=== PATIENT | female | born 1975 | race Asian ===

== ENCOUNTER 2016-06-30 14:55 | Emergency (ER) | payer OTHER ==
[~2016-06-30] VITALS: Ht 154.9 cm; Wt 52.2 kg
[~2016-06-30 14:55] MED LIST: LEVOTAB; MOXI400T
[2016-06-30 16:30] VITALS: BP 131/91
[2016-06-30] MEDS ORDERED: HYDROmorphone HCL 2 MG/ML VL IM ONE (17:15)
[2016-06-30] MEDS ORDERED: ONDANSETRON HCL 4 MG/2 ML VIAL IM ONE (17:15)
== END 2016-06-30 18:37 | disposition home or self-care (01) ==
LOC: ER 15:00
DX: G89.29 Other chronic pain (principal); M54.2 Cervicalgia; M54.12 Radiculopathy, cervical region; Z88.0 Allergy status to penicillin; Z88.6 Allergy status to analgesic agent
CPT/HCPCS: 72125; 96372; 99284; J1170; J2405

== ENCOUNTER 2016-08-06 11:56 | Emergency (ER) | payer OTHER ==
[~2016-08-06] VITALS: Ht 154.9 cm; Wt 52.2 kg
[2016-08-06 12:06] VITALS: BP 130/92
== END 2016-08-06 13:19 | disposition home or self-care (01) ==
LOC: ER 11:56
DX: G89.29 Other chronic pain (principal); M54.2 Cervicalgia; F41.9 Anxiety disorder, unspecified; Z76.0 Encounter for issue of repeat prescription; Z88.0 Allergy status to penicillin; Z88.6 Allergy status to analgesic agent

== ENCOUNTER 2019-09-07 16:35 | Emergency (ER) | payer OTHER ==
[~2019-09-07] VITALS: Ht 154.9 cm; Wt 54.4 kg
[~2019-09-07 16:35] MED LIST changes: -MOXI400T; +MOXI400T2
[2019-09-07 16:47] VITALS: BP 149/93
[2019-09-07] MEDS ORDERED: cefTRIAXone SOD 1,000 MG VL IM ONE (17:00)
[2019-09-07] MEDS ORDERED: CLINDAMYCIN 600MG IV 50 ML IV ONE (17:15)
[2019-09-07] MEDS ORDERED: cefTRIAXone 1GM/50ML D5W 50 ML IV ONE (17:15)
[2019-09-07] MEDS ORDERED: PIPERACILLIN-TAZOB 3.375GM 100 ML IV ONE (17:15)
[2019-09-07 17:28] LABS: Basophils # (auto) 0.1 10 ^3/uL (0-0.2); Basophils % (auto) 0.9 % (0.0-2.0); Eosinophils # (auto) 0.1 10 ^3/uL (0-0.8); Eosinophils % (auto) 1.5 % (0.0-7.0); Hematocrit 42.4 % (36.0-46.0); Hemoglobin 14.4 g/dL (12.2-16.2); Lymphocytes # (auto) 2.4 10 ^3/uL (0.4-5.4); Lymphocytes % (auto) 27.8 % (10.0-50.0); Mean Corpuscular Hemoglobin 31.5 pg (28.0-32.0); Mean Corpuscular Hgb Conc. 33.9 g/dL (32.0-36.0); Monocytes # (auto) 0.5 10 ^3/uL (0-1.3); Monocytes % (auto) 5.8 % (0.0-12.0); Neutrophils # (auto) 5.5 10 ^3/uL (1.6-8.6); Nucleated Red Blood Cells % 0.1 %; Platelet Count (auto) 274 10^3/uL (140-450); Red Blood Cells 4.56 10^6/uL (4.0-5.20); Red Cell Distribution Width 13.6 % (11.8-14.3); White Blood Cell 8.6 10^3/uL (4.4-10.8)
[2019-09-07 17:43] LABS: Calcium 8.7 mg/dL (8.5-10.1); Potassium 3.7 mmol/L (3.5-5.1)
== END 2019-09-07 18:12 | disposition home or self-care (01) ==
LOC: ER 16:35
DX: K11.21 Acute sialoadenitis (principal); Z90.710 Acquired absence of both cervix and uterus; Z88.6 Allergy status to analgesic agent
CPT/HCPCS: 36415; 80048; 85025; 96365; 96375; 99284; J0696; J3490; 96368

== ENCOUNTER 2019-09-08 15:34 | Emergency (ER) | payer OTHER ==
[~2019-09-08] VITALS: Ht 154.9 cm; Wt 54.4 kg
[2019-09-08 15:43] VITALS: BP 137/88
[2019-09-08] MEDS ORDERED: cefTRIAXone SOD 1,000 MG VL IM ONE (16:00)
== END 2019-09-08 16:23 | disposition home or self-care (01) ==
LOC: ER 15:34
DX: K11.21 Acute sialoadenitis (principal); F41.9 Anxiety disorder, unspecified; Z88.0 Allergy status to penicillin; Z88.1 Allergy status to other antibiotic agents
CPT/HCPCS: 96372; 99283; J0696